=== PATIENT | male | born 1970 | race Caucasian/White ===

== ENCOUNTER 2024-04-22 11:49 | Emergency (ER) | payer SELFPAY ==
[2024-04-22] MEDS ORDERED: CEPHALEXIN 250 MG CAP ONE (13:09)
[2024-04-22] MEDS ORDERED: LIDOCAINE 2% MPF 5 ML VIAL ONE (13:09)
[2024-04-22] MEDS ORDERED: HYDROCODONE/APAP 10/325 TAB ONE (13:41)
--- NOTE | 2024-04-22 14:48 | ER ---
Nurse's Notes 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 Coronavirus screen: At this time, the client does not indicate any symptoms associated with coronavirus-19. Ebola Screen: No symptoms or risks identified at this time. Complicating Factors: There are no complicating factors for this patient. Initial Sepsis Screen: Does the patient meet any 2 criteria? No. Patient's initial sepsis screen is negative. Does the patient have a suspected source of infection? No. Patient's initial sepsis screen is negative. Risk Assessment: Do you want to hurt yourself or someone else? Patient reports no desire to harm self or others. Onset of symptoms was April 22, 2024. 12:14 Method Of Arrival: Ambulatory hb 12:14 Acuity: MITCHEL 3 hb Historical: - Allergies: 12:16 PENICILLINS; hb - PMHx: 12:16 PTSD; Hepatitis B; hb - PSHx: 12:16 Hernia Repair; hb - Immunization history:: Adult Immunizations up to date. - Infectious Disease History:: Denies. - Social history:: Smoking status: Reported history of juuling and/or vaping. Screenin:15 [facility] ED Fall Risk Assessment (Adult) History of falling in the last 3 months, jb4 including since admission No falls in past 3 months (0 pts) Confusion or Disorientation No (0 pts) Intoxicated or Sedated No (0 pts) Impaired Gait No (0 pts) Mobility Assist Device Used No (0 pt) Altered Elimination No (0 pt) Score/Fall Risk Level 0 - 2 = Low Risk Oriented to surroundings, Maintained a safe environment. Abuse screen: Denies threats or abuse. Nutritional screening: No deficits noted. Tuberculosis screening: No symptoms or risk factors identified. Assessment: 12:15 General: Appears in no apparent distress. comfortable, Behavior is calm, cooperative, jb4 appropriate for age. Pain: Complains of pain in palmar aspect of proximal phalanx of left little finger Pain does not radiate. Pain currently is 4 out of 10 on a pain scale. Neuro: Level of Consciousness is awake, alert, obeys commands, Oriented to person, place, time, situation. Cardiovascular: Patient's skin is warm and dry. Respiratory: Airway is patent Respiratory effort is even, unlabored, Respiratory pattern is regular, symmetrical. Derm: Skin is pink, warm \T\ dry. Musculoskeletal: Circulation, motion, and sensation intact. Range of motion: intact in all extremities. Injury Description: Laceration sustained to palmar aspect of proximal phalanx of left little finger is clean, bleeding moderately, is bleeding moderately. 13:13 Reassessment: Patient appears in no apparent distress at this time. Patient and/or jb4 family updated on plan of care and expected duration. Pain level reassessed. Patient is alert, oriented x 3, equal unlabored respirations, skin warm/dry/pink. 14:30 Reassessment: Patient appears in no apparent distress at this time. Patient and/or jb4 family updated on plan of care and expected duration. Pain level reassessed. Patient is alert, oriented x 3, equal unlabored respirations, skin warm/dry/pink. 15:10 Reassessment: Patient appears in no apparent distress at this time. Patient and/or jb4 family updated on plan of care and expected duration. Pain level reassessed. Patient is alert, oriented x 3, equal unlabored respirations, skin warm/dry/pink. Vital Signs: 12:14 BP 157 / 102; Pulse 96; Resp 16; Temp 98; Pulse Ox 97% ; Weight 83.91 kg; Height 5 ft. hb 9 in. ; Pain 8/10; 12:14 Body Mass Index 27.32 (83.91 kg, 175.26 cm) hb 12:14 Pain Scale: Adult hb ED Course: 11:51 Patient arrived in ED. al6 12:15 Bucky Landeros MD is Attending Physician. bo1 12:15 Triage completed. hb 12:15 Patient has correct armband on for positive identification. Bed in low position. Call jb4 light in reach. Side rails up X 1. Provided Education on: plan of care. 12:16 Arm band placed on. hb 14:54 Ronny Medellin RN is Primary Nurse. jb4 15:10 No provider procedures requiring assistance completed. Patient did not have IV access jb4 during this emergency room visit. Administered Medications: 13:32 Drug: Cephalexin PO 500 mg PO once Route: PO; ap3 15:10 Follow up: Response: No adverse reaction; Marked relief of symptoms jb4 13:47 Drug: [place] PO 10 mg-325 mg 1 tabs PO once Route: PO; ap3 15:10 Follow up: Response: No adverse reaction; Marked relief of symptoms jb4 14:34 Drug: Lidocaine Infiltration (2 %) 5 ml 5 ml Infiltration once; to bedside {Note: jb4 administered by ER provider..} Volume: 5 ml; Route: Infiltration; Outcome: 14:48 Discharge ordered by . bo1 15:10 Discharged to home ambulatory, jb4 15:10 Condition: stable 15:10 Discharge instructions given to patient, Instructed on discharge instructions, follow up and referral plans. medication usage, Demonstrated understanding of instructions, follow-up care, medications, Prescriptions given X 2, 15:12 Patient left the ED. jb4 Signatures: Kari Simmons RN RN Ronny Medellin RN RN jb4 Pau Rosario RN RN ap3 Bucky Landeros MD MD bo1 Kaleigh Alberto al6
--- NOTE | 2024-04-22 14:48 | EDPHYS ---
Physician Documentation [facility] Name: Eddie Bedolla Age: 53 yrs Sex: Male : 1970 Arrival Date: 04/22/2024 Time: 11:49 Bed 24 Private MD: ED Physician Bucky Landeros HPI: 04/22 14:41 This 53 yrs old Male presents to ER via Ambulatory with complaints of Laceration, bo1 laceration to finger. 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 The bo1 laceration(s) is(are) located on the left hand. Onset: The symptoms/episode began/occurred suddenly, just prior to arrival. 5th finger of the left [employer]. 14:42 Last tetanus was 2 years ago. bo1 Historical: - Allergies: 12:16 PENICILLINS; hb - PMHx: 12:16 PTSD; Hepatitis B; hb - PSHx: 12:16 Hernia Repair; hb - Immunization history:: Adult Immunizations up to date. - Infectious Disease History:: Denies. - Social history:: Smoking status: Reported history of juuling and/or vaping. ROS: 14:42 Constitutional: Negative for fever, chills, and weight loss bo1 14:42 MS/extremity: Positive for laceration, of the left hand, 5th finger at the lateral PIP area 1 cm, 14:42 Skin: Positive for laceration(s), Bleeding is controlled, 14:42 Neuro: Positive for Pain, Negative for numbness, tingling, 14:42 All other systems are negative, Exam: 14:43 Constitutional: This is a well developed, well nourished patient who is awake, alert, bo1 and in no acute distress. 14:43 Musculoskeletal/extremity: Extremities: grossly normal except: noted in the left hand: laceration, Left 5th finger at the lateral PIP flexor area, Vital Signs: 12:14 BP 157 / 102; Pulse 96; Resp 16; Temp 98; Pulse Ox 97% ; Weight 83.91 kg; Height 5 ft. hb 9 in. ; Pain 8/10; 12:14 Body Mass Index 27.32 (83.91 kg, 175.26 cm) hb 12:14 Pain Scale: Adult hb Procedures: 14:45 Splinting: applied by nurse. 5th finger splint. Examined by me, post splint bo1 application: neurovascular intact, brisk capillary refill noted. Laceration: 14:45 Wound Repair of 1cm ( 0.4in ) subcutaneous laceration to left hand. Distal bo1 neuro/vascular/tendon intact. Anesthesia: Local anesthetic administered with 5 mls of 2% lidocaine. Wound prep: Extensive cleansing with betadine by me. Skin closed with 5 4-0 Prolene using simple sutures and sterile technique. Dressed with Bacitracin, 4x4's, pressure dressing. Patient tolerated well. MDM: 12:15 Medical Screening Exam initiated bo1 14:50 Differential diagnosis: superficial laceration, No tendon injury. FROM and tendon bo1 check. NV bundle intact. Data reviewed: vital signs. ED course: Splint application pending along with dressing. Administered Medications: 13:32 Drug: Cephalexin PO 500 mg PO once Route: PO; ap3 15:10 Follow up: Response: No adverse reaction; Marked relief of symptoms jb4 13:47 Drug: [place] PO 10 mg-325 mg 1 tabs PO once Route: PO; ap3 15:10 Follow up: Response: No adverse reaction; Marked relief of symptoms jb4 14:34 Drug: Lidocaine Infiltration (2 %) 5 ml 5 ml Infiltration once; to bedside {Note: jb4 administered by ER provider..} Volume: 5 ml; Route: Infiltration; Disposition Summary: 04/22/24 14:48 Discharge Ordered Notes: Location: Home bo1 Problem: new bo1 Symptoms: have improved bo1 Condition: Stable bo1 Diagnosis - Laceration without foreign body of left ring finger without damage to nail bo1 Followup: bo1 - With: Private Physician - When: 10 - 14 days - Reason: Staple/Suture removal Discharge Instructions: - Discharge Summary Sheet bo1 - Laceration Care, Adult, [id number] bo1 Forms: - Medication Reconciliation Form bo1 - Antibiotic Education bo1 - Prescription Opioid Use bo1 - Patient Portal Instructions bo1 - Leadership Thank You Letter bo1 Prescriptions: - Cephalexin 500 mg Oral capsule - take 1 capsule ORAL route every 6 hours for 5 days; 20 capsule; Refills: 0, bo1 Product Selection Permitted - Tramadol 50 mg Oral Tablet - take 1 tablet ORAL route every 8 hours as needed; 12 tablet; Refills: 0, bo1 Product Selection Permitted Signatures: Kari Simmons, RN RN hb Ronny Medellin RN RN jb4 Pau Rosario, RN RN ap3 Bucky Landeros MD MD bo1
[2024-04-22 16:47] VITALS: BP 157/102; TEMP 98; O2SAT 97
== END 2024-04-22 15:12 | disposition home or self-care (01) ==
LOC: ER 11:49
DX: S61.215A Laceration without foreign body of left ring finger without damage to nail, initial encounter (principal)
CPT/HCPCS: 12041; 99283; J2003